=== PATIENT | male | born 1980 | race Caucasian/White ===

== ENCOUNTER 2021-10-01 09:05 | Emergency (ER) | payer OTHER ==
[~2021-10-01] VITALS: Ht 172.7 cm; Wt 94.8 kg
[2021-10-01 09:08] VITALS: BP 159/92
--- NOTE | 2021-10-01 09:13 | NUR ---
Patient ambulated with steady gait to bed 3.
--- NOTE | 2021-10-01 09:15 | NUR ---
41 y/o male AMBULATED TO BED 3 WITH STADY GAIT, pt states his pulse was at 203 and had c/o headache and chest pain. pt states he also had the same s/s this morning with blurry vision, states his bp and heart rate was high at home. pmh: scott nkdebbie med: pepeies
[2021-10-01] MEDS: ACETAMINOPHEN 325 MG TAB PO ONE (09:52)
--- NOTE | 2021-10-01 10:03 | NUR ---
xr at bedside with portable xr
--- NOTE | 2021-10-01 10:11 | NUR ---
labs draw and walked down to lab
--- NOTE | 2021-10-01 10:15 | NUR ---
Note undone in EDM - 10/01/21 at 1024 by RICK Patient discharged with v/s stable. Written and verbal after care instructions given and explained. Patient alert, oriented and verbalized understanding of instructions. Ambulatory with steady gait. All questions addressed prior to discharge. ID band removed. Patient advised to follow up with PMD. Rx of albuterol, prednisone given. Patient educated on indication of medication including possible reaction and side effects. Opportunity to ask questions provided and answered.
[2021-10-01 10:25] LABS: BASOPHILS # (AUTO) 0.1 K/uL (0.00-0.22); BASOPHILS % (AUTO) 0.8 % (0.0-2.0); EOSINOPHILS % (AUTO) 0.3 % (0.0-4.0); HEMATOCRIT 44.2 % (36-52); LYMPHOCYTES # (AUTO) 1.8 K/uL (2.0-11.5); LYMPHOCYTES % (AUTO) 23.2 % (20.5-51.1); MEAN CORPUSCULAR HEMOGLOBIN 31 pg (27-31); MEAN CORPUSCULAR HGB CONC 34 g/dL (33-37); MEAN CORPUSCULAR VOLUME 91.8 fL (80-94); MONOCYTES # (AUTO) 0.4 K/uL (0.8-1.0); MONOCYTES % (AUTO) 5.4 % (1.7-9.3); NEUTROPHILS # (AUTO) 5.4 K/uL (1.8-7.7); NEUTROPHILS % (AUTO) 70.3 % (42.2-75.2); PLATELET COUNT (AUTO) 310 K/uL (140-450); RED BLOOD CELL COUNT(AUTO) 4.81 MIL/uL (4.20-6.10); RED CELL DISTRIBUTION WIDTH 13.8 % (11.6-13.7); WHITE BLOOD COUNT (AUTO) 7.6 K/uL (4.8-10.8)
[2021-10-01 10:40] LABS: ALBUMIN 3.7 g/dL (3.4-5.0); ANION GAP 11.4 (8-16); CARBON DIOXIDE 25.5 mmol/L (21-32); CREATININE 0.9 mg/dL (0.6-1.3); POTASSIUM 3.9 mmol/L (3.5-5.1); TOTAL BILIRUBIN 0.4 mg/dL (0.0-1.0)
--- NOTE | 2021-10-01 11:25 | NUR ---
PT AMBULATED TO RESTROOM WITH STEADY GAIT
--- NOTE | 2021-10-01 12:15 | NUR ---
DR RAYMUNDO AT BEDSIDE GOING OVER PT RESULTS.
[2021-10-01] MEDS ORDERED: ZOLP5TAB1 PO (12:20)
[2021-10-01 12:30] VITALS: BP 125/75
--- NOTE | 2021-10-01 12:30 | NUR ---
Patient discharged with v/s stable. Written and verbal after care instructions given and explained. Patient alert, oriented and verbalized understanding of instructions. Ambulatory with steady gait. All questions addressed prior to discharge. ID band removed. Patient advised to follow up with PMD. Rx of TONG given. Patient educated on indication of medication including possible reaction and side effects. Opportunity to ask questions provided and answered.
== END 2021-10-01 12:30 | disposition home or self-care (01) ==
LOC: MED 09:05
DX: G47.00 Insomnia, unspecified (principal); R07.9 Chest pain, unspecified; R51.9 Headache, unspecified; R45.7 State of emotional shock and stress, unspecified
CPT/HCPCS: 36415; 71045; 80053; 84443; 84484; 85025; 93005; 99285; Q0092